=== PATIENT | female | born 1930 | race Two or more races ===

== ENCOUNTER 2019-02-02 14:28 | Emergency (ER) | payer MEDICARE, OTHER ==
[~2019-02-02] VITALS: Wt 70.0 kg
--- NOTE | 2019-02-02 14:38 | ERD ---
ER Documentation Chief Complaint Chief Complaint bib ra from apartment for mechanical fall, pain in r knee HPI This is an 88-year-old female with a past medical history of hypertension, hyp erlipidemia, hypothyroidism, peripheral vascular disease on Xarelto, dementia, many previous falls and skin tears due to not utilizing her walker all the time who is now presenting after a mechanical fall. The patient reports getting mixed up with her walker and tripping. She fell on her knees and right elbow. She sustained an abrasion to the right elbow and skin tears to the right and left shins. The patient does not believe that anything is fractured. She is able to move both hips and knees without difficulty. She is able to move her right elbow without difficulty. The patient does not endorse any other trauma or injury. She is adamant that she did not hit her head. She denies any headache or vision changes. She denies any neck or back pain. She denies any cardiothoracic or abdominal trauma. She did not have any chest pain or trouble breathing. She does not have any abdominal pain. She denies any focal deficits. She denies any weakness or numbness or tingling to the face or extremities. The patient does not endorse any lightheadedness or dizziness. She did not syncopized. She does not feel sick. She denies any fever or chills. ROS All systems reviewed and are negative except as per history of present illness. Medications Home Meds Reported Medications Memantine HCl/Donepezil HCl (Namzaric 21 mg-10 mg Capsule) 1 Each Cap.spr.24, 1 EACH PO DAILY 02/02/19 Fluticasone-Vilanterol (Breo Ellipta Inhaler) 100-25 Mcg/Actuation Aer.pow.ba, 1 PUFF INHALATION DAILY, #1 INHALER 02/02/19 Icosapent Ethyl (VASCEPA) 1 Gm Capsule, 2 GM PO BID, CAP 02/02/19 Mirabegron (Myrbetriq) 50 Mg Tab.er.24h, 50 MG PO DAILY, TAB 02/02/19 Pitavastatin Calcium (Livalo) 2 Mg Tablet, 2 MG PO DAILY, TAB 02/02/19 Dexlansoprazole (Dexilant) 60 Mg , 60 MG PO DAILY, #30 CAP 02/02/19 Escitalopram Oxalate* (Escitalopram Oxalate*) 10 Mg Tablet, 10 MG PO DAILY, #30 TAB 02/02/19 Montelukast Sodium* (Montelukast Sodium*) 10 Mg Tablet, 10 MG PO QHS, #30 TAB 02/02/19 Tramadol Hcl* (Ultram*) 50 Mg Tablet, 50 MG PO Q6H PRN for PAIN, TAB 02/02/19 Gabapentin* (Gabapentin*) 300 Mg Capsule, 300 MG PO DAILY, #60 CAP 02/02/19 Ofloxacin* (Ocuflox*) 0.3%-5 Ml Ophth Drops, 1 DROP BOTH EYES QID, BOTTLE 02/02/19 Zolpidem Tartrate* (Zolpidem Tartrate*) 5 Mg Tablet, 5 MG PO QHS PRN for INSOMNIA, #30 TAB 02/02/19 Doxycycline Monohydrate* (Doxycycline Monohydrate*) 100 Mg Tablet, 100 MG PO BID, TAB 02/02/19 Atenolol* (Atenolol*) 25 Mg Tablet, 25 MG PO DAILY, #30 TAB 02/02/19 Furosemide* (Furosemide*) 40 Mg Tablet, 40 MG PO BID, TAB 02/02/19 Erythromycin Base (Erythromycin) 1 Gm Oint...g., 1 GM OP NEEDED DAILY 02/02/19 Econazole Nitrate (Econazole Nitrate) 15 Gm Cream..g., 15 GM TP BID 02/02/19 Prednisone* (Prednisone*) 10 Mg Tab, 10 MG PO BID, TAB 02/02/19-START TAKING BID FOR 3 DAYS, THEN 1 TAB DAILY FOR 3 DAYS 02/02/19 Levothyroxine Sodium* (Levothyroxine Sodium*) 75 Mcg Tablet, 75 MCG PO BEFORE BREAKFAST, #30 TAB 02/02/19 Temazepam* (Restoril*) 15 Mg Capsule, 15 MG PO HS PRN for INSOMNIA, CAP 02/02/19 Folic Acid* (Folic Acid*) 1 Mg Tablet, 1 MG PO DAILY, TAB 02/02/19 Rivaroxaban* (Xarelto*) 10 Mg Tablet, 10 MG PO DAILY, TAB 02/02/19 Ipratropium-Albuterol (Ipratropium-Albuterol) 0.5-3 Mg/3 Ml Ampul.neb, 3 ML INHALATION Q6, #30 VIAL 4/17/19 Discontinued Reported Medications Ofloxacin Otic (Ofloxacin Otic) 5 Ml Drops, 10 DROP BOTH EARS DAILY for 7 Days, #1 BOTTLE 02/02/19 Allergies Allergies: Coded Allergies: Penicillins (Unverified Allergy, Unknown, 02/02/19) sulfamethoxazole (Unverified Allergy, Unknown, 02/02/19) trimethoprim (Unverified Allergy, Unknown, 02/02/19) vancomycin (Unverified Allergy, Unknown, 02/02/19) PMhx/Soc History of Surgery: Yes (Hip replacement, lower extremity stent placement) Anesthesia Reaction: No Hx Neurological Disorder: Yes (Dementia) Hx Respiratory Disorders: Yes (COPD) Hx Cardiac Disorders: Yes (Hypertension, hyperlipidemia, CHF) Hx Psychiatric Problems: No Hx Miscellaneous Medical Probl: Yes (Peripheral vascular disease, hypothyroidism) Hx Alcohol Use: No Hx Substance Use: No Hx Tobacco Use: No Smoking Status: Never smoker FmHx Family History: No diabetes Physical Exam Vitals Vital Signs Date Temp Pulse Resp B/P (MAP) Pulse Ox O2 O2 Flow FiO2 Time Delivery Rate 02/02/19 61 14 112/66 98 Room Air 16:00 (81) 02/02/19 71 14 124/68 98 Room Air 15:00 (86) 02/02/19 78 14 127/77 98 Room Air 14:35 (94) 02/02/19 98.1 69 19 141/75 98 14:34 (97) Physical Exam Const: No apparent distress, well-developed, well-nourished Head: Normocephalic, Atraumatic Eyes: Normal Conjunctiva. Extraocular movements intact. Pupils equal, round and reactive to light ENT: Normal External Ears, Nose and Mouth. Neck: Full range of motion without tenderness. No midline tenderness to palpation. No meningismus. Resp: Clear to auscultation bilaterally, No wheezes, rales or rhonchi Cardio: Regular rate and rhythm. No murmurs, rubs or gallops Abd: Soft, non tender, non distended. Normal bowel sounds Skin: No petechiae or rashes Back: No midline tenderness. No CVA tenderness Ext: No cyanosis, or edema. Abrasion to the right elbow. Large 15 cm curvilinear laceration/skin tear over the right knee but not entering the joint capsule. Angulated 5 cm laceration over the left guerrero, left tibia not visible. Neur: Awake and alert. Cranial nerves intact. No facial droop. Normal strength, sensation and coordination. Psych: Normal Mood and Affect Results 24 hrs Current Medications Medications Dose Sig/Morgan Start Time Status Last (Trade) Ordered Route PRN Stop Time Admin Dose Reason Admin 650 mg ONCE ONCE 02/02/19 DC 02/02/19 Acetaminophen PO 15:00 15:14 (Tylenol 02/02/19 15:01 Tab) Diphtheria/ 0.5 ml ONCE ONCE 02/02/19 DC 02/02/19 Tetanus/Acell IM* 15:30 15:40 Pertussis 02/02/19 15:31 (Adacel) Lidocaine 20 ml ONCE ONCE 02/02/19 DC 02/02/19 (Xylocaine SC 15:30 15:38 1% (Mdv) 20 02/02/19 15:31 ml) Ketorolac 15 mg ONCE STAT 02/02/19 DC 02/02/19 Tromethamine IV 16:27 16:33 (Toradol) 02/02/19 16:29 Procedures/MDM MDM The patient's presentation warrants further investigation. Previous medical records, if available, were reviewed. IMAGING Imaging and Radiology interpretation reviewed. XR R Knee FINDINGS: No acute appearing fracture detected, allowing for the limitation of osteopenia. Stable chronic-appearing concavity of the lateral tibial plateau. Moderate to severe tricompartmental arthrosis with joint space narrowing, marginal osteophyte formation, and chondrocalcinosis. Small joint effusion. Anterolateral soft tissue swelling and possibly small amount of soft tissue air. IMPRESSION: Soft tissue swelling and small joint effusion without acute appearing fracture detected. Stable chronic deformity/concavity of the lateral tibial plateau when compared to prior exam. 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 Electronically viewed and signed by Physician Darai on 02/02/2019 15:34 TREATMENT/DISPOSITION The patient presents after a mechanical fall. She sustained abrasions and lacerations to the right elbow, right knee and left guerrero. I have low suspicion for extremity fracture or dislocation. I did obtain a right knee x-ray, which does reveal a small joint effusion with adjacent soft tissue swelling. I do not feel that the joint space was penetrated. There is no evidence of any penetrating injuries. I do not feel that other imaging studies are required at this time. The skin tears/lacerations were repaired without complication. Given the size of the lacerations, I do intend to treat with antibiotics prophylactically. Given the location of the right skin tear over the knee, I am concerned about the possibility of the suture repair tearing with bending of the knee. I did request that a knee immobilizer be placed for now. The patient should follow-up with the primary care physician in 1-2 days for reassessment and may have this removed at that time if the wound is healing appropriately. There is no other evidence of trauma or injury. The patient was evaluated fully without evidence of emergent posttraumatic pathology. The patient reports that she did not hit her head. The patient has no focal deficits. I've low suspicion for intracranial pathology. I have low suspicion for cerebral ischemia or intracranial hemorrhage. The patient has no cervical spine tenderness. He can move his neck in all directions without any pain. As stated above, he does not have any focal deficits. He is not altered or intoxicated. He does not have any distracting injuries. The patient's cervical spine was clinically cleared using the Nexus C-spine rule. The patient does not have any saddle anesthesia. He has not been incontinent of urine or stool. He has not had any retention of urine or stool. I have low suspicion for spinal cord injury. There is no evidence of cardiothoracic or abdominal trauma. PROCEDURE Laceration Repair by me: Anesthesia: 1% lidocaine without epinephrine locally Location: Overlying right knee and guerrero Tendon/Joint/Nerves: No injury Foreign body: None detected after copious irrigation and exploration Technique: Simple Interrupted Sutures Complexity: No subcutaneous sutures/mucosal repair/edge excision Post Closure Length: 15 cm Laceration Repair by me: Anesthesia: 1% lidocaine without epinephrine locally Location: Left guerrero Tendon/Joint/Nerves: No injury Foreign body: None detected after copious irrigation and exploration Technique: Simple Interrupted Sutures Complexity: No subcutaneous sutures/mucosal repair/edge excision Post Closure Length: 5 cm Patient's bleeding was easily controlled in the department. No evidence of anemia, compartment syndrome, neurologic injury, vascular injury, open joint, tendon laceration, or foreign body. Patient is appropriate for outpatient follow up. 48 hour wound check recommended. Scar minimization instructions given. DISCHARGE Upon reevaluation of the patient, symptoms have improved. No emergent diagnoses were identified. At this time, I feel that the patient stable for discharge. The patient was instructed to follow-up with a primary care physician in 1-3 days. The patient will be given strict precautions with which to return to the emergency department. Prescriptions: Keflex, Tylenol The patient's blood pressure was elevated at greater than 120/80 while in the emergency department. The patient was otherwise stable with no evidence of hypertensive urgency or emergency. The patient does not require admission for blood pressure control. I have discussed with the patient the risks of hypertension. I have instructed the patient to return to the ER for any new or worsening symptoms including chest pain, shortness of breath, headache, blurred vision, confusion, nausea, vomiting or LOC. I have advised the patient to follow up with the primary care physician for outpatient monitoring and treatment for hypertension in 1-3 days. Disclaimer: Inadvertent spelling and grammatical errors are likely due to EHR/dictation software use and do not reflect on the overall quality of patient care. Note that the electronic time recorded on this note does not necessarily reflect the actual time of the patient encounter. Departure Diagnosis: Primary Impression: Fall from ground level Additional Impressions: Laceration of right lower leg Encounter type: initial encounter Qualified Codes: S81.811A - Laceration without foreign body, right lower leg, initial encounter Laceration of left lower leg Encounter type: initial encounter Qualified Codes: S81.812A - Laceration without foreign body, left lower leg, initial encounter Abrasion of right elbow Encounter type: initial encounter Qualified Codes: S50.311A - Abrasion of right elbow, initial encounter Effusion, right knee Condition: Stable Patient Instructions: Contusion, Elbow (Infant/Toddler), Fall Prevention, Laceration, All Additional Instructions: Thank you for for coming to [facility] for your care today. Please ask your nurse or provider if you have questions about your care today and do not leave until all your questions have been answered. Please use any medications given as directed and follow-up with your doctor (or the doctor you were referred to) in the next 1-3 days. If you do not have a primary care doctor you may follow up at the [facility] (listed below). You may also use motrin and tylenol as needed for fever and/or pain unless instructed otherwise by your provider or nurse. Indications for more urgent follow-up have been discussed, but you may return to the Emergency Department at ANY time for any worrisome or worsening symptoms. If you have abdominal pain, please know that no test or exam you received is perfect and you should follow up within 8 hours for continued pain. If you had any imaging studies today, such as an X-Ray or CT Scan, these studies will be reviewed later by a radiologist. You will be called if there are important findings that were not identified today, so make sure the contact information you provided at registration is correct. If you received any narcotic pain control medicine today, such as Vicodin, Morphine or Dilaudid, your coordination and judgment may be affected for a number of hours. Please do not drive or operate heavy machinery, and you may want someone to assist you at home. If you were given a prescription for narcotic medication, be aware that it is very addictive- use sparingly and only if necessary. PLEASE SEEK FURTHER EVALUATION AND MANAGEMENT AT YOUR DOCTORS OFFICE WITHIN THE NEXT 1-3 DAYS. IT IS YOUR RESPONSIBILITY TO MAKE AN APPOINTMENT FOR FOLOW-UP CARE. IF YOU HAVE A PRIMARY DOCTOR, PLEASE CALL THEIR OFFICE TO SCHEDULE AN APPOINTMENT FOR FOLLOW UP. IF YOU DO NOT HAVE A PRIMARY DOCTOR YOU CAN CALL OUR PHYSICIAN REFERRAL HOTLINE AT IF YOU CAN NOT AFFORD TO SEE A PHYSICIAN YOU CAN CHOSE FROM THE FOLLOWING [facility]: [facility] [address] [facility]. [facility] [address] [facility] [facility] [address] [facility] [address] [facility] [facility] [address] [facility]. [facility]. [address] VASYL ROSEN MD Feb 02, 2019 14:38
[2019-02-02] MEDS ORDERED: ACETAMINOPHEN 325 MG TAB PO ONE (15:00)
[2019-02-02] MEDS ORDERED: LIDOCAINE 1% (MDV) 20 ML INJ SC ONE (15:30)
[2019-02-02] MEDS ORDERED: DIPHTH/TET/ACEL PERTUSS (ADULT) 0.5 ML VIAL IM* ONE (15:30)
[2019-02-02] MEDS ORDERED: IPRA3AMP29 INHALATION (16:11)
[2019-02-02] MEDS ORDERED: FOLI-49 PO (16:11)
[2019-02-02] MEDS ORDERED: RIVA10TA PO (16:11)
[2019-02-02] MEDS ORDERED: TEMA15CA6 PO (16:12)
[2019-02-02] MEDS ORDERED: LEVO75TA5 PO (16:12)
[2019-02-02] MEDS ORDERED: PRED10TA PO (16:13)
[2019-02-02] MEDS ORDERED: ECON15CR TP (16:15)
[2019-02-02] MEDS ORDERED: ERYT1OIN6 OP (16:16)
[2019-02-02] MEDS ORDERED: FURO40TA4 PO (16:16)
[2019-02-02] MEDS ORDERED: DOXY100T21 PO (16:17)
[2019-02-02] MEDS ORDERED: ATEN-51 PO (16:17)
[2019-02-02] MEDS ORDERED: ZOLP5TAB7 PO (16:17)
[2019-02-02] MEDS ORDERED: GABA300C16 PO (16:19)
[2019-02-02] MEDS ORDERED: OFLO5DRO7 BOTH EARS (16:19)
[2019-02-02] MEDS ORDERED: OFLO5DRO46 BOTH EYES (16:19)
[2019-02-02] MEDS ORDERED: TRAM50TA PO (16:20)
[2019-02-02] MEDS ORDERED: MONT10TA24 PO (16:20)
[2019-02-02] MEDS ORDERED: ESCI10TA48 PO (16:21)
[2019-02-02] MEDS ORDERED: DEXL60CA2 PO (16:21)
[2019-02-02] MEDS ORDERED: PITA2TAB PO (16:21)
[2019-02-02] MEDS ORDERED: MIRA50TA PO (16:22)
[2019-02-02] MEDS ORDERED: ICOS1CAP PO (16:22)
[2019-02-02] MEDS ORDERED: MEMA1CAP5 PO (16:23)
[2019-02-02] MEDS ORDERED: FLUT1AER INHALATION (16:23)
[2019-02-02] MEDS ORDERED: KETOROLAC 15 MG INJ IV STA (16:27)
[2019-02-02] MEDS ORDERED: ACET325T33 PO (19:19)
[2019-02-02] MEDS ORDERED: CEPH-443 PO (19:19)
[2019-02-02] MEDS ORDERED: BACITRACIN 0.9 GM OINT TOP ONE (19:30)
[2019-02-02 19:40] VITALS: BP 117/71; PULSE 84; RESP 18
== END 2019-02-02 19:04 | disposition home or self-care (01) ==
LOC: E/R 14:28
DX: S81.011A Laceration without foreign body, right knee, initial encounter (principal); S81.812A Laceration without foreign body, left lower leg, initial encounter; I10 Essential (primary) hypertension; E03.9 Hypothyroidism, unspecified; J44.9 Chronic obstructive pulmonary disease, unspecified; I50.9 Heart failure, unspecified; S50.311A Abrasion of right elbow, initial encounter; W18.39XA Other fall on same level, initial encounter; Y92.9 Unspecified place or not applicable; Z23 Encounter for immunization; Z96.649 Presence of unspecified artificial hip joint
CPT/HCPCS: 12005; 73562; 90471; 90715; 96374; 99284; J1885

== ENCOUNTER 2019-02-12 13:28 | Emergency (ER) | payer MEDICARE, OTHER ==
[~2019-02-12] VITALS: Ht 152.4 cm; Wt 59.1 kg
[~2019-02-12 13:28] MED LIST: ACET325T33 PO; ATEN-51 PO; CEPH-443 PO; DEXL60CA2 PO; DOXY100T21 PO; ECON15CR TP; ERYT1OIN6 OP; ESCI10TA48 PO; FLUT1AER INHALATION; FOLI-49 PO; FURO40TA4 PO; GABA300C16 PO; ICOS1CAP PO; IPRA3AMP29 INHALATION; LEVO75TA5 PO; MEMA1CAP5 PO; MIRA50TA PO; MONT10TA24 PO; OFLO5DRO46 BOTH EYES; PITA2TAB PO; PRED10TA PO; RIVA10TA PO; TEMA15CA6 PO; TRAM50TA PO; ZOLP5TAB7 PO
[2019-02-12 13:30] VITALS: BP 121/58; PULSE 89; RESP 18; Ht 152.4 cm; Wt 59.1 kg
[2019-02-12] MEDS ORDERED: BACITRACIN 0.9 GM OINT TOP ONE (16:00)
[2019-02-12] MEDS ORDERED: MUPI22OI2 TOP (16:41)
--- NOTE | 2019-02-24 00:03 | ERD ---
ER Documentation Chief Complaint Chief Complaint suture removal bilateral lower legs, placed 02/02 at [facility] This is an 88-year-old female with a past medical history of hypertension, hyper lipidemia, hypothyroidism, peripheral vascular disease on Xarelto, dementia coming in today with complaint of wound recheck post laceration repair. Medical history reveals many previous falls and skin tears due to not utilizing her walker all the time; which resulted in a mechanical fall and patient having to have 2 laceration repairs. ROS All systems reviewed and are negative except as per history of present illness. Medications Home Meds Active Scripts Mupirocin* (Bactroban*) 2% -22 Gram Oint...g., 1 APPLIC TOP BID for 7 Days, EA Prov:TANG GODOY NP 02/12/19 Acetaminophen* (Tylenol*) 325 Mg Tablet, 1 TAB PO Q6 PRN for PAIN AND/OR INFLAMMATION, #30 TAB Prov:VASYL DIXON MD 02/02/19 Cephalexin* (Keflex*) 500 Mg Capsule, 500 MG PO QID for 5 Days, CAP Prov:AVSYL DIXON MD 02/02/19 Reported Medications Memantine HCl/Donepezil HCl (Namzaric 21 mg-10 mg Capsule) 1 Each Cap.spr.24, 1 EACH PO DAILY 02/02/19 Fluticasone-Vilanterol (Breo Ellipta Inhaler) 100-25 Mcg/Actuation Aer.pow.ba, 1 PUFF INHALATION DAILY, #1 INHALER 02/02/19 Icosapent Ethyl (VASCEPA) 1 Gm Capsule, 2 GM PO BID, CAP 02/02/19 Mirabegron (Myrbetriq) 50 Mg Tab.er.24h, 50 MG PO DAILY, TAB 02/02/19 Pitavastatin Calcium (Livalo) 2 Mg Tablet, 2 MG PO DAILY, TAB 02/02/19 Dexlansoprazole (Dexilant) 60 Mg Cap., 60 MG PO DAILY, #30 CAP 02/02/19 Escitalopram Oxalate* (Escitalopram Oxalate*) 10 Mg Tablet, 10 MG PO DAILY, #30 TAB 02/02/19 Montelukast Sodium* (Montelukast Sodium*) 10 Mg Tablet, 10 MG PO QHS, #30 TAB 02/02/19 Tramadol Hcl* (Ultram*) 50 Mg Tablet, 50 MG PO Q6H PRN for PAIN, TAB 02/02/19 Gabapentin* (Gabapentin*) 300 Mg Capsule, 300 MG PO DAILY, #60 CAP 02/02/19 Ofloxacin* (Ocuflox*) 0.3%-5 Ml Ophth Drops, 1 DROP BOTH EYES QID, BOTTLE 02/02/19 Zolpidem Tartrate* (Zolpidem Tartrate*) 5 Mg Tablet, 5 MG PO QHS PRN for INSOMNIA, #30 TAB 02/02/19 Doxycycline Monohydrate* (Doxycycline Monohydrate*) 100 Mg Tablet, 100 MG PO BI D, TAB 02/02/19 Atenolol* (Atenolol*) 25 Mg Tablet, 25 MG PO DAILY, #30 TAB 02/02/19 Furosemide* (Furosemide*) 40 Mg Tablet, 40 MG PO BID, TAB 02/02/19 Erythromycin Base (Erythromycin) 1 Gm Oint...g., 1 GM OP NEEDED DAILY 02/02/19 Econazole Nitrate (Econazole Nitrate) 15 Gm Cream..g., 15 GM TP BID 02/02/19 Prednisone* (Prednisone*) 10 Mg Tab, 10 MG PO BID, TAB 02/02/19-START TAKING BID FOR 3 DAYS, THEN 1 TAB DAILY FOR 3 DAYS 02/02/19 Levothyroxine Sodium* (Levothyroxine Sodium*) 75 Mcg Tablet, 75 MCG PO BEFORE BREAKFAST, #30 TAB 02/02/19 Temazepam* (Restoril*) 15 Mg Capsule, 15 MG PO HS PRN for INSOMNIA, CAP 02/02/19 Folic Acid* (Folic Acid*) 1 Mg Tablet, 1 MG PO DAILY, TAB 02/02/19 Rivaroxaban* (Xarelto*) 10 Mg Tablet, 10 MG PO DAILY, TAB 02/02/19 Ipratropium-Albuterol (Ipratropium-Albuterol) 0.5-3 Mg/3 Ml Ampul.neb, 3 ML INHALATION Q6, #30 VIAL 02/02/19 Allergies Allergies: Coded Allergies: Penicillins (Unverified Allergy, Unknown, 02/12/19) sulfamethoxazole (Unverified Allergy, Unknown, 02/12/19) trimethoprim (Unverified Allergy, Unknown, 02/12/19) vancomycin (Unverified Allergy, Unknown, 02/12/19) PMhx/Soc History of Surgery: Yes (Hip replacement, lower extremity stent placement) Anesthesia Reaction: No Hx Neurological Disorder: Yes (Dementia) Hx Respiratory Disorders: Yes (COPD) Hx Cardiac Disorders: Yes (Hypertension, hyperlipidemia, CHF) Hx Psychiatric Problems: No Hx Miscellaneous Medical Probl: Yes (Peripheral vascular disease, hypothyroidism) Hx Alcohol Use: No Hx Substance Use: No Hx Tobacco Use: No Smoking Status: Never smoker FmHx Family History: No coronary disease Physical Exam Physical Exam Const: No apparent distress, well-developed, well-nourished Head: Normocephalic, Atraumatic Eyes: Normal Conjunctiva. Extraocular movements intact. Pupils equal, round and reactive to light ENT: Normal External Ears, Nose and Mouth. Neck: Full range of motion without tenderness. No midline tenderness to palpation. No meningismus. Resp: Clear to auscultation bilaterally, No wheezes, rales or rhonchi Cardio: Regular rate and rhythm. No murmurs, rubs or gallops Abd: Soft, non tender, non distended. Normal bowel sounds Skin: No petechiae or rashes Back: No midline tenderness. No CVA tenderness Ext: No cyanosis, or edema. Healing abrasion to the right elbow. Large 15 cm curvilinear laceration repair over the right knee. 5 cm laceration repair over the left guerrero. Neur: Awake and alert. Cranial nerves intact. No facial droop. Normal strength, sensation and coordination. Psych: Normal Mood and Affect Results 24 hrs Current Medications Medications Dose Sig/Morgan Start Time Status Last (Trade) Ordered Route PRN Stop Time Admin Dose Reason Admin Bacitracin 1 applic ONCE ONCE 02/12/19 DC 02/12/19 (Bacitracin TOP 16:00 16:31 Oint (Ud)) 02/12/19 16:01 Procedures/MDM ED course includes a thorough examination and history. Low suspicion for life-threatening medical emergency. patient presenting with constellation of symptoms likely representing encounter for removal of sutures/infection post laceration repair as characterized by history, physical exam findings. Unable to perform laceration repair to laceration on right KNEE. After removal of one suture, there were signs of dehiscence. Steri-Strip applied to area of concern to prevent wound from opening. Patient and family member educated to follow-up in 2 to 3 days for wound reevaluation. Suture Removal by Dr. Abdalla to laceration of left guerrero: Sutures removed with tweezers and scissors without incident. Wound shows positive evidence of infection; no foreign body, neurologic injury, vascular injury, open joint or tendon laceration, no dehiscence. Bacitracin applied. Patient to follow up 2-3 DAYS. No respiratory distress, otherwise relatively well appearing and nontoxic. Patient educated on diagnoses, prescriptions, follow-up care, return precautions. Strict return precautions given for worsening condition; questions answered discharge. Disposition for discharge with followup in 2 days with PCP/clinic. Departure Diagnosis: Primary Impression: Infection, wound status post trauma Additional Impression: Encounter for removal of sutures Condition: Stable Patient Instructions: Wound Check, Lac F/U (Infected) Referrals: [facility] YOU HAVE RECEIVED A MEDICAL SCREENING EXAM AND THE RESULTS INDICATE THAT YOU DO NOT HAVE A CONDITION THAT REQUIRES URGENT TREATMENT IN THE EMERGENCY DEPARTMENT. FURTHER EVALUATION AND TREATMENT OF YOUR CONDITION CAN WAIT UNTIL YOU ARE SEEN IN YOUR DOCTORS OFFICE WITHIN THE NEXT 1-2 DAYS. IT IS YOUR RESPONSIBILITY TO MAKE AN APPOINTMENT FOR [facility]. IF YOU HAVE A PRIMARY DOCTOR --you should call your primary doctor and schedule an appointment IF YOU DO NOT HAVE A PRIMARY DOCTOR YOU CAN CALL OUR PHYSICIAN REFERRAL HOTLINE AT IF YOU CAN NOT AFFORD TO SEE A PHYSICIAN YOU CAN CHOSE FROM THE FOLLOWING [facility] [address] [facility] [facility] [address] [facility] [facility] [address] [facility] [address] [facility]. [facility] [address] [facility]. [facility]. [address] [facility]. [facility] YOU HAVE RECEIVED A MEDICAL SCREENING EXAM AND THE RESULTS INDICATE THAT YOU DO NOT HAVE A CONDITION THAT REQUIRES URGENT TREATMENT IN THE EMERGENCY DEPARTMENT. FURTHER EVALUATION AND TREATMENT OF YOUR CONDITION CAN WAIT UNTIL YOU ARE SEEN IN YOUR DOCTORS OFFICE WITHIN THE NEXT 1-2 DAYS. IT IS YOUR RESPONSIBILITY TO MAKE AN APPOINTMENT FOR [facility]. IF YOU HAVE A PRIMARY DOCTOR --you should call your primary doctor and schedule and appointment IF YOU DO NOT HAVE A PRIMARY DOCTOR YOU CAN CALL OUR PHYSICIAN REFERRAL HOTLINE AT . IF YOU CAN NOT AFFORD TO SEE A PHYSICIAN YOU CAN CHOSE FROM THE FOLLOWING [facility] INSTITUTIONS: [facility] [address] [place] [address] [facility] [address] [place] [address] [facility] [address] [place] [address] Additional Instructions: Thank you very much for allowing us to participate in your care. Your health and safety is our top priority at [facility]. It is important to read all discharge instructions and education provided in your discharge packet. Call your primary care doctor TOMORROW for an appointment during the next 2-4 days and bring all the information and medications prescribed. Patient should have wound recheck with primary care doctor [place]. Wound this is approximately 4 days. Have prescriptions filled and follow precisely the directions on the label. -Bacitracin as it is a topical antibiotic for skin infection. Apply this as ordered. -Continue doxycycline. If the symptoms get worse and your provider is unavailable, return to the Emergency Department immediately. If patient develops fever, chills, increased redness, increased purulent drainage, increase in redness and swelling of laceration; return to emergency department. TANG GODOY NP February 24, 2019 00:03
== END 2019-02-12 17:05 | disposition home or self-care (01) ==
LOC: FTE 13:28
DX: L08.9 Local infection of the skin and subcutaneous tissue, unspecified (principal); I11.0 Hypertensive heart disease with heart failure; I50.9 Heart failure, unspecified; J44.9 Chronic obstructive pulmonary disease, unspecified; E03.9 Hypothyroidism, unspecified; Z79.01 Long term (current) use of anticoagulants; Z96.649 Presence of unspecified artificial hip joint
CPT/HCPCS: 99283